=== PATIENT | female | born 1935 | race Caucasian/White ===

== ENCOUNTER → 2016-11-19 | Outpatient (CLI) | payer MEDICARE, OTHER ==
[~2016-11-19] MED LIST: LEVO50TA83 PO; LIOT5TAB3 PO
--- NOTE | 2016-11-19 20:10 | HKNOTE ---
DATE OF SERVICE: 11/19/2016 The patient had a left total hip replacement by the anterior route on 07/10/2016. She was very plea sed with the results of surgery. She states she cannot believe how little pain she had after surger y compared to when she had her right hip surgery. Note that she had revision surgery on her right h ip on 02/09/2014 for a failed ASR socket. At surgery, the femoral component was found to be loose. This was an unexpected finding, and the entire hip had to be revised. A ceramic on plastic hip was installed. Subsequently she noted that the right leg was shorter than the left leg, but she had ar thritis in the left hip and wasn't sure what was impacting her more. At her last visit, I measured her legs and found that the right leg was three-quarters of an inch sh orter than the left. I ordered a half-inch shoe lift, but the patient has not yet gotten the shoe l ift. She had pain at her last visit over the right greater trochanter, and I gave her a cortisone i njection into that area. She indicates that this did not help her at all. Note that she states that "my home health care after my hip replacement was wonderful." She still h as some pain over the right greater trochanter. She also gets pain in the right groin from time to time when she gets up from a sitting position. T he pain has a sudden onset. It can last anything from a few minutes to an hour. This only happens perhaps once a month or so. She had no numbness or tingling in her legs. Both of her legs feel "weak." She requests a prescrip tion for physical therapy to strengthen her legs. PHYSICAL EXAMINATION: VITAL SIGNS: Blood pressure 120/50, temperature 98.1. GAIT: She walks without a walking aid, but she clearly has a short-leg gait. RIGHT HIP: A full pain-free range of motion. Stable. Her x-rays were reviewed, and these show that the right leg clearly is shorter than the left (note t hat at the last left hip surgery, the leg was not lengthened at all, and the offset was lateralized by 2 mm). MANAGEMENT: The patient is advised that she has the shortest neck length on her right hip implant a nd that we could add neck length to about a half an inch, which would improve her situation to the p oint where she may not need a shoe lift at all. I suspect that the pain she is getting in her right hip when she gets up from sitting is somehow related to subluxation of the right hip. The patient is advised that lengthening the leg will have 2 benefits, one is improving her gait from more equal leg lengths, and two, might provide more stability through the hip so that she no longer gets these episodic pain spells. Also we discussed the possibility of including a socket liner wit h a lip if we can find a location where the hip might be subluxing. The patient was given another prescription for a shoe lift so that she can assess what benefit a ming f-inch shoe lift may be to her. She will think about the surgery and will call my nutrition services assistant, Brian cordon, if she wishes to proceed. Dictated By: MANNIE BLACKWOOD/AKUA Conf#: [id number] DID#: [id number]
== END | disposition home or self-care (01) ==
LOC: HKI 13:57
DX: Z47.1 Aftercare following joint replacement surgery (principal); Z96.642 Presence of left artificial hip joint
CPT/HCPCS: G0463

== ENCOUNTER → 2016-12-04 | Outpatient (CLI) | payer MEDICARE, OTHER ==
[~2016-12-04] MED LIST changes: +ASPI325T32 PO
--- NOTE | 2016-12-05 02:09 | HKNOTE ---
DATE OF SERVICE: 12/04/2016 Patient comes in for preoperative evaluation. She is scheduled for a head and liner exchange of her right total hip replacement. She comes in with her She has been cleared for surgery by Dr. Iain Chan. Numerous quest ions were asked and answered. She has not given any blood for autotransfusion. She understands the risks associated with using hospital blood. She is agreeable to using hospital blood if needed. T he patient understands that we will lengthen her leg only as far as would be safe to do so without i njuring her sciatica. Dictated By: MANNIE BLACKWOOD/NTS Conf#: [id number] DID#: [id number]
== END | disposition home or self-care (01) ==
LOC: HKI 14:33
DX: Z01.818 Encounter for other preprocedural examination (principal); Z96.641 Presence of right artificial hip joint
CPT/HCPCS: G0463

== ENCOUNTER 2016-12-05 05:44 | Inpatient (IN) | payer MEDICARE, OTHER ==
[2016-12-04 09:14] VITALS: BMI 18.8
[~2016-12-05] VITALS: Ht 165.1 cm; Wt 49.7 kg
[2016-12-05] VITALS (24 sets, daily range): BP systolic 84–112; BP diastolic 42–59; PULSE 74–89; RESP 13–31; Ht 165.1 cm; Wt 49.7 kg
[~2016-12-05 05:44] MED LIST changes: -ASPI325T32 PO
[2016-12-05] MEDS ORDERED: oxyCODONE (CR) 10 MG TAB [oxyCONTIN] PO ONE (06:00)
[2016-12-05] MEDS ORDERED: CELECOXIB 200 MG CAP PO ONE (06:00)
[2016-12-05] MEDS ORDERED: ONDANSETRON 4 MG INJ IV ONE (06:00)
[2016-12-05] MEDS ORDERED: VANCOMYCIN 1 GM (PMX) 250 ML IVPB ONE (06:00)
[2016-12-05] MEDS ORDERED: DEXAMETHASONE 4 MG/ML 1 ML INJ IV ONE (06:00)
[2016-12-05] MEDS ORDERED: ACETAMINOPHEN 1000MG/100ML IV 100 ML IVPB ONE (06:00)
[2016-12-05] MEDS ORDERED: LANSOPRAZOLE 30 MG CAP PO ONE (06:00)
[2016-12-05] MEDS ORDERED: TRANEXAMIC ACID 1,000 MG in SOD CHLORIDE 0.9% 100 ML IVPB ONE (06:00)
[2016-12-05] MEDS ORDERED: LACTATED RINGER'S 1,000 ML IV* SCH (06:00)
[2016-12-05] MEDS ORDERED: HIP PAIN COCKTAIL VANCO INJ SCH ×7 (06:00)
[2016-12-05] MEDS ORDERED: MIDAZOLAM 1 MG/ML 2 ML INJ ONE (07:05)
[2016-12-05] MEDS ORDERED: LIDOCAINE 2% (SDV) 5 ML INJ ONE (07:05)
[2016-12-05] MEDS ORDERED: ROCURONIUM 50 MG INJ ONE (07:05)
[2016-12-05] MEDS ORDERED: NEOSTIGMINE 3 MG/3 ML SYRINGE ONE (07:05)
[2016-12-05] MEDS ORDERED: GLYCOPYRROLATE 1 MG INJ ONE (07:05)
[2016-12-05] MEDS ORDERED: PROPOFOL 20 ML ONE (07:05)
[2016-12-05] MEDS ORDERED: FENTAnyl 50 MCG/ML VIAL ONE (07:05)
[2016-12-05] MEDS ORDERED: LIDOCAINE 2%/EPI 30 ML INJ ONE (07:07)
[2016-12-05] MEDS ORDERED: ONDANSETRON 4 MG INJ IV PRN (07:30)
[2016-12-05] MEDS ORDERED: OXYCODONE/ACETAMINOPHEN (5/325) TAB PO PRN ×2 (07:30)
[2016-12-05] MEDS ORDERED: hydrALAzine 20 MG INJ IV PRN (07:30)
[2016-12-05] MEDS ORDERED: DIPHENHYDRAMINE 50 MG INJ IV PRN (07:30)
[2016-12-05] MEDS ORDERED: MIDAZOLAM 1 MG/ML 2 ML INJ IV PRN (07:30)
[2016-12-05] MEDS ORDERED: ATROPINE 1 MG/10 ML SYRINGE IV PRN (07:30)
[2016-12-05] MEDS ORDERED: morphine (1 MG/ML) 10ML SYRINGE IV PRN ×3 (07:30)
[2016-12-05] MEDS ORDERED: LABETALOL HCL 20MG INJ IV PRN (07:30)
[2016-12-05] MEDS ORDERED: FENTAnyl 50 MCG/ML VIAL IV PRN ×2 (07:30)
[2016-12-05] MEDS ORDERED: HYDROmorphONE (0.2 MG/ML) 10ML SYG IV PRN ×3 (07:30)
[2016-12-05] MEDS ORDERED: EPHEDrine SULFATE 50 MG/5 ML SYG IV PRN (07:30)
[2016-12-05] MEDS ORDERED: MEPERIDINE 25 MG INJ IV PRN (07:30)
[2016-12-05] MEDS ORDERED: BACITRACIN 50000 UNITS INJ ONE (07:32)
[2016-12-05] MEDS ORDERED: VANCOMYCIN 1 GM INJ ONE ×2 (07:37→07:55)
[2016-12-05] MEDS ORDERED: HEPARIN 1000 UNITS/ML 10 ML INJ ONE (07:37)
[2016-12-05] MEDS ORDERED: POLYMYXIN B 500000 UNIT INJ ONE ×2 (07:37→07:55)
[2016-12-05] MEDS ORDERED: GELATIN SIZE 100 SPONGE ONE ×2 (07:37→07:54)
[2016-12-05] MEDS ORDERED: ROPIVACAINE 0.2% 0 ML ONE (07:37)
[2016-12-05] MEDS ORDERED: ROPIVACAINE 0.2% 100 ML ONE (07:54)
[2016-12-05] MEDS ORDERED: SOD CHLORIDE 0.9% 50 ML, TRANEXAMIC ACID 1,000 MG IRR SCH ×2 (08:00)
[2016-12-05] MEDS ORDERED: ONDANSETRON 4 MG INJ ONE (08:14)
[2016-12-05] MEDS ORDERED: DEXAMETHASONE 4 MG/ML 1 ML INJ ONE (08:14)
[2016-12-05] MEDS ORDERED: EPHEDrine SULFATE 50 MG/5 ML SYG ONE (08:29)
--- NOTE | 2016-12-05 08:39 | HPN ---
Date/Time of Note Date/Time of Note DATE: 12/05/16 TIME: 08:38 Interval H&P Admission Note Pt. seen H&P reviewed: No system changes PEACE CORNEJO PA-C Dec 05, 2016 08:39
[2016-12-05] MEDS ORDERED: LABETALOL HCL 20MG INJ ONE (08:43)
[2016-12-05] MEDS ORDERED: hydrALAzine 20 MG INJ ONE (08:43)
[2016-12-05] MEDS ORDERED: ROPIVACAINE 0.2% 100ML BAG INJ ONE (09:09)
[2016-12-05] MEDS ORDERED: FUROSEMIDE 20 MG INJ ONE (09:43)
[2016-12-05] MEDS ORDERED: MAGNESIUM HYDROXIDE 30ML CUP PO PRN (11:30)
[2016-12-05] MEDS ORDERED: NACL 0.9% 3 ML SYG IV SCH (11:30)
[2016-12-05] MEDS ORDERED: DIPHENHYDRAMINE 50 MG INJ IM PRN (11:30)
[2016-12-05] MEDS ORDERED: BETHANECHOL 25 MG TAB PO PRN (11:30)
[2016-12-05] MEDS ORDERED: ZOLPIDEM 5 MG TAB PO PRN (11:30)
[2016-12-05] MEDS ORDERED: SENNA/DOCUSATE NA (8.6MG/50MG) TAB PO PRN (11:30)
[2016-12-05] MEDS ORDERED: BISACODYL 10 MG SUPP PR PRN (11:30)
[2016-12-05] MEDS ORDERED: HYDROmorphONE 0.2 MG/ML PCA IV PRN (11:30)
[2016-12-05] MEDS ORDERED: NA PHOSPHATE/BIPHOS 133 ML ENEMA PR PRN (11:30)
[2016-12-05] MEDS ORDERED: DOCUSATE SODIUM 100 MG CAP PO ONE ×2 (11:30→11:39)
[2016-12-05] MEDS ORDERED: NALOXONE (0.4 MG/ML) INJ IV PRN (11:30)
[2016-12-05] MEDS ORDERED: MEPERIDINE 10 MG/ML 30 ML PCA IV PRN (11:30)
[2016-12-05] MEDS ORDERED: ASPIRIN (EC) 325 MG TAB PO ONE ×2 (11:30→11:39)
[2016-12-05] MEDS ORDERED: CEFAZOLIN 1 GM/50 ML (PMX) 50 ML IVPB ONE (11:38)
--- NOTE | 2016-12-05 11:40 | RADRPT ---
PROCEDURE: XR Right Hip. CLINICAL INDICATION: Right hip pain. Postop. TECHNIQUE: Single frontal view. COMPARISON: 02/14/2016. FINDINGS: There is a right hip total arthroplasty revision. This appears satisfactory with no fracture, dislo cation or loosening. There is no lytic lesion. Right lateral skin remedios and surgical drains are noted. There is gas in the soft tissues from the recent surgery. IMPRESSION: 1. Satisfactory postoperative appearance of the right hip. RPTAT: QQ .Dino Jean Baptiste MD, MD Date Time Electronically viewed and signed by .Dino Jean Baptiste MD, on 12/05/2016 11:39 .R/
[2016-12-05] MEDS: ACETAMINOPHEN 1000MG/100ML IV 100 ML IVPB SCH ×2 (11:53→20:21)
[2016-12-05] MEDS: ONDANSETRON 4 MG INJ IV SCH ×2 (11:54→17:41)
[2016-12-05] MEDS: CEFAZOLIN 1 GM/50 ML (PMX) 50 ML IVPB SCH ×2 (11:56→20:49)
--- NOTE | 2016-12-05 12:54 | OPR ---
DATE OF OPERATION: 12/05/2016 SURGEON: Wild Tanner MD MANAGER PLANNING: ANESTHESIA: Dr. 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 PROCEDURE: Lengthening of right leg by changing the femoral head and neck component. DISCUSSION: The patient had a right total hip replacement at least 10 years ago. She recently had a left total hip replacement by the anterior approach. The leg length on the left side was kept abs olutely where it was at the last surgery in order not to change this dynamics of the left hip. Once the patient recovered and had a full range of motion of the left hip, she is now aware of the fact that the right leg seemed to be too short. Measurements in the office indicated that approximately a 1/2 inch to 3/4 inch lift would equalize the leg lengths. The patient previously had a +1 mm femo ral neck on the femoral head component. Fortunately, that is the shortest one available, so we were able to select longer necks that would fit without causing undue traction on the sciatic nerve. Th e next neck length after 9 is 12, and that has a collar on the neck, so that would make it more pron e to dislocation. Patient also was complaining of subluxation of the right hip and lengthening the neck length would, therefore, solve both the length problem and the subluxation. FINDINGS AT SURGERY: There was absolutely no sign of infection. The acetabular component showed no wear. The femoral component was found to be well fixed to bone. DESCRIPTION OF PROCEDURE: Under general anesthetic, the patient was placed on a Van Tassell table. The [facility] leg, thigh, and lower abdomen were prepared and draped in the usual sterile fashion. An incisio n was made over the anterolateral aspect of the right thigh approximately 80 mm long. The incision was deepened through the deep fascia, and by blunt dissection the interval between the tensor fascia noam and the rectus muscle was identified. The capsule was now opened. There was no fluid in the hip, so we could not send any to the lab. By incising the capsule, we were able to dislocate the hi p. The femoral head was removed. The acetabular component was inspected. Acetabulum was found to be well attached to the bone. Acetabular plastic component appeared to be without wear. The wound was frequently irrigated throughout the procedure with normal saline-containing antibiotic s. A 9 mm trial femoral neck head component was now installed. The tension on the hip appeared to be a ppropriate. The Peggy test appeared to be appropriate. The hip was now put through an extremely ful l range of motion to the limits. The hip was completely stable. The hip was dislocated. The trunnion was cleaned. The permanent femoral head was now installed, an d the hip was reduced. Two deep drains were installed. The wound was now once again irrigated, and the wound was closed wi th interrupted Vicryl in the deep tissues and remedios on the skin. The usual sterile dressings were applied. The patient was taken off the [place] T[place] table and placed on a gurney with an abductor pillow between her legs. The patient returned to recovery room in stable condition. There were no problems or complications as far as is known. IMPLANT COMPONENT INFORMATION: Femoral head size: 32 mm. Femoral neck size: +9 mm. Femoral head: [employer] Delta ceramic. Implant ventilating engineer: [employer] [place], [place]. Dictated By: WILD BLACKWOOD/AKUA Conf#: [id number] DID#: [id number]
[2016-12-05] MEDS: DEXTROSE 5%-LR 1,000 ML IV SCH (13:47)
--- NOTE | 2016-12-05 16:22 | PN ---
Date/Time of Note Date/Time of Note DATE: 12/05/16 TIME: 16:20 Assessment/Plan VTE Prophylaxis VTE Prophylaxis Intervention: SCD's Lines/Catheters IV Catheter Type (from Nrsg): Peripheral IV Urinary Cath still in place: Yes Subjective 24 Hr Interval Summary Free Text/Dictation post rt hip surgery today, has been up once and did well alert talkative, no pain complaints lungs clear, hrt rate is ok, extremities, no edema vs ok, bop sl low, output is good Exam/Review of Systems Vital Signs Vitals Vital Signs Date Time Temp Pulse Resp B/P Pulse Ox O2 Delivery O2 Flow Rate FiO2 12/05/16 14:15 76 16 94/50 98 Room Air 12/05/16 13:25 97.4 Medications Medications Current Medications Dextrose/Lactated Ringer's (D5-Lr) 1,000 ml @ 80 mls/hr [id number] IV Last administered on 12/05/16 13:47; Admin Dose 80 MLS/HR; Start 12/05/16 at 11:30 Hydromorphone HCl (Dilaudid TOP SPOTTER) Q4PCA PRN IV SEVERE PAIN 8-10; Start at 11:30; Stop 12/06/16 at 09:00 Meperidine HCl (Demerol TOP SPOTTER) Q4PCA PRN IV SEVERE PAIN 8-10; Start 12/05/16 at 11:30; Stop 12/06/16 at 09:00 Oxycodone HCl (Roxicodone) 20 mg Q3H PRN PO PAIN LEVEL 8-10; Start 12/06/16 at 09:00 Oxycodone HCl 10 mg 10 mg Q3H PRN PO PAIN LEVEL 4-7; Start 12/06/16 at 09:00 Acetaminophen (Ofirmev 1000mg/ 100ml Iv) 100 ml @ 400 mls/hr Q8H IVPB Last administered on 12/05/16 11:53; Admin Dose 400 MLS/HR; Start 12/05/16 at 12:00 ; Stop 12/07/16 at 04:14 Zolpidem Tartrate (Ambien) 5 mg HS PRN PO INSOMNIA; Start 12/05/16 at 11:30 Ondansetron HCl 4 mg 4 mg Q6H IV Last administered on 12/05/16 11:54; Admin Dose 4 MG; Start 12/05/16 at 12:00; Stop 12/06/16 at 06:01 Cefazolin Sodium (Ancef 1 Gm/50 ml (Pmx)) 50 ml @ 100 mls/hr Q8H IVPB Last administered on 12/05/16t 11:56; Admin Dose 100 MLS/HR; Start 12/05/16 at 12:00 ; Stop 12/06/16 at 04:29 Aspirin (Ecotrin) 325 mg BID PO ; Start 12/06/16 at 09:00 Celecoxib (Celebrex) 200 mg BID PO ; Start 12/06/16 at 09:00 Dexamethasone (Decadron) 4 mg DAILY@07 IV ; Start 12/06/16 at 07:00; Stop at 06:59 Pantoprazole (Protonix Tab) 40 mg DAILY@06 PO ; Start 12/06/16 at 06:00 Docusate Sodium/ Ferrous Fumarate (Viv-Sequels) 1 tab BID PO ; Start 12/06/16 at 09:00 Docusate Sodium (Colace) 200 mg BID PO ; Start 12/06/16 at 09:00; Stop 12/08/16 at 21:01 Simethicone (Mylicon) 80 mg TID PRN PO DISTENSION/GAS/BLOATING; Start 12/05/16 at 11:30 Senna/Docusate Sodium (Senokot-S) 2 tab BID PRN PO CONSTIPATION; Start at 11:30 Magnesium Hydroxide (Milk Of Mag) 30 ml HS PRN PO CONSTIPATION; Start 12/05/16 at 11:30 Bisacodyl (Dulcolax Supp) [address] CONSTIPATION; Start 12/05/16 at 11 :30 Sodium Biphosphate/ Sodium Phosphate (Fleet Enema) [address] CONSTIPATION; Start 12/05/16 at 11:30 Diphenhydramine HCl (Benadryl) 25 mg Q4H PRN IM ITCHING OR RASH; Start at 11:30 Ketorolac Tromethamine (Toradol) 30 mg DAILY@06 PRN INJ ADMINSTER BY SURGEON ONLY; Start 12/06/16 at 06:00; Stop 12/08/16 at 23:59 Bupivacaine HCl/ Epinephrine Bitart (Marcaine 0.25%/ Epi (Sdv) 30 ml) 20 ml DAILY@06 PRN INJ ADMINSTER BY SURGEON ONLY; Start 12/06/16 at 06:00; Stop 12/08 at 23:59 Naloxone HCl (Narcan) 0.2 mg Q2M PRN IV DECREASED REPIRATORY RATE; Start at 11:30 DELFINO RUVALCABA MD Dec 05, 2016 16:22
[2016-12-06] VITALS: BP 90/52; PULSE 77; RESP 18
[2016-12-06] MEDS: ONDANSETRON 4 MG INJ IV SCH ×2 (00:34→06:18)
[2016-12-06] MEDS: ACETAMINOPHEN 1000MG/100ML IV 100 ML IVPB SCH ×4 (04:04→20:35)
[2016-12-06] MEDS: CEFAZOLIN 1 GM/50 ML (PMX) 50 ML IVPB SCH (04:36)
[2016-12-06 04:37] VITALS: BP 98/48; PULSE 77; RESP 18
[2016-12-06] MEDS ORDERED: KETOROLAC 30 MG INJ INJ PRN (06:00)
[2016-12-06] MEDS ORDERED: BUPIVACAINE 0.25%/EPI (SDV) 30 ML INJ INJ PRN (06:00)
[2016-12-06] MEDS: DEXAMETHASONE 4 MG/ML 1 ML INJ IV SCH (06:17)
[2016-12-06] MEDS: DEXTROSE 5%-LR 1,000 ML IV SCH ×2 (06:17)
[2016-12-06] MEDS: PANTOPRAZOLE (EC) 40 MG TAB PO SCH (06:18)
--- NOTE | 2016-12-06 06:57 | PN ---
Date/Time of Note Date/Time of Note DATE: 12/06/16 TIME: 06:53 Assessment/Plan VTE Prophylaxis VTE Prophylaxis Intervention: ambulation, SCD's, other (ASA 325mg) Lines/Catheters IV Catheter Type (from Nrsg): Peripheral IV Miranda in Place (from Nrsg): Yes Assessment/Plan Assessment/Plan Pain cocktail given today Hemovac removed Dressing change performed today Continue DVT prophylaxis with SCDs and ASA Continue inpatient physical therapy. Pain medications as needed Patient continues to do well, likely able to discharge tomorrow should there be no complications or problems Patient plans to be discharged home with home health. Will work with case management. Subjective 24 Hr Interval Summary 81-year-old female postop day 1 right total hip revision with replacement of femoral head and neck component via anterior route. Patient denies any pain since yesterday. Patient is doing well. Patient was up and out of bed independently and walking with assistance with a walker yesterday. Denies any shortness of breath, difficulty breathing, or calf pain. Patient has no complaints today and is very pleased status post surgery. Constitutional: no complaints Pain Control: well controlled Exam/Review of Systems Vital Signs Vitals Vital Signs Date Time Temp Pulse Resp B/P Pulse Ox O2 Delivery O2 Flow Rate FiO2 12/06/16 04:37 97.6 77 18 98/48 98 Room Air Intake and Output 12/05/16 12/05/16 12/06/16 15:00 23:00 07:00 Intake Total 2800 ml 570 ml 1190 ml Output Total 320 ml 1800 ml 810 ml Balance 2480 ml -1230 ml 380 ml Exam Free Text/Dictation Drains intact. Wound site is clean dry and intact. Patient is able to flex up to 45 today. No calf pain/negative Homans sign. Normal sensory examination to light touch. No tenderness to palpation. 2+ pedal pulses to the dorsalis pedis and posterior tibialis. Toes freely movable. PEACE CORNEJO PA-C Dec 06, 2016 06:57
[2016-12-06 07:00] VITALS: BP 96/54; RESP 20
[2016-12-06] MEDS: CELECOXIB 200 MG CAP PO SCH ×2 (08:24→20:35)
[2016-12-06] MEDS: ASPIRIN (EC) 325 MG TAB PO SCH ×2 (08:24→20:35)
[2016-12-06] MEDS: DOCUSATE SODIUM 100 MG CAP PO SCH ×2 (08:25→20:35)
[2016-12-06] MEDS: FERROUS FUMARATE (SR) TAB PO SCH ×2 (08:25→20:35)
[2016-12-06 09:00] LABS: BASOPHILS % 0.1 % (0.0-2.0); HEMATOCRIT 30.7 % (37.0-47.0); HEMOGLOBIN 10.6 g/dl (12.0-16.0); LYMPHOCYTES # 0.6 10^3/ul (0.8-2.9); LYMPHOCYTES % 6.8 % (15.0-51.0); MEAN CORPUSCULAR HEMOGLOBIN 28.8 pg (29.0-33.0); MEAN CORPUSCULAR HGB CONC 34.6 g/dl (32.0-37.0); MEAN CORPUSCULAR VOLUME 83.2 fl (82.0-101.0); MEAN PLATELET VOLUME 8.5 fl (7.4-10.4); MONOCYTE # 0.5 10^3/ul (0.3-0.9); MONOCYTES % 5.8 % (0.0-11.0); NEUTROPHILS % 87.3 % (39.0-77.0); PLATELET COUNT 143 10^3/UL (140-440); RED BLOOD COUNT 3.69 10^6/ul (4.20-5.40); RED CELL DISTRIBUTION WIDTH 15.7 % (11.5-14.5); UNCORRECTED WBC 9.2 10^3/ul (4.8-10.8); WHITE BLOOD COUNT 9.2 10^3/ul (4.8-10.8)
[2016-12-06] MEDS ORDERED: oxyCODONE 5 MG TAB PO PRN ×2 (09:00)
[2016-12-06 09:20] LABS: CONDITION 1; LH ANALYZER COMMENTS 1
--- NOTE | 2016-12-06 12:35 | PN ---
Date/Time of Note Date/Time of Note DATE: 12/06/16 TIME: 12:32 Assessment/Plan VTE Prophylaxis VTE Prophylaxis Intervention: contraindicated, other (ASA) VTE Contraindication Reason: sx procedure on lower extremity Lines/Catheters IV Catheter Type (from Nrsg): Peripheral IV Urinary Cath still in place: Yes Reason Cath still needed: skin wounds contaminated by urine Assessment/Plan Problems: (1) Other specified hypothyroidism Status: Chronic Comment: On LT4 (2) Aftercare following right hip joint replacement surgery Status: Acute Comment: Doing well POD# 1. Likely to be d/c'ed tomorrow. Agree pt. ready for d/c from med standpoint. Subjective 24 Hr Interval Summary Constitutional: improved, no complaints Respiratory: no complaints Cardiovascular: no complaints Gastrointestinal: no complaints, No passing stool Genitourinary: no complaints Musculoskeletal: no complaints, No bone/joint pain Neurologic: no complaints Exam/Review of Systems Vital Signs Vitals VS - Last 72 Hours, by Label Date Time Temp Pulse Resp B/P Pulse Ox O2 Delivery O2 Flow Rate FiO2 12/06/16 07:00 97.7 75 20 96/54 98 12/06/16 04:37 97.6 77 18 98/48 98 Room Air 12/06/16 00:00 97.7 77 18 90/52 98 Room Air 12/05/16 20:02 98.0 73 20 90/59 98 12/05/16 14:15 76 16 94/50 98 Room Air 12/05/16 14:00 74 18 93/50 98 Room Air 12/05/16 13:40 76 18 98/50 98 Room Air 12/05/16 13:25 97.4 77 19 97/50 98 Room Air 12/05/16 12:13 74 16 100/46 96 Room Air 12/05/16 12:07 74 16 90/44 95 Room Air 12/05/16 12:04 80 30 95/43 96 Room Air 12/05/16 12:02 74 19 86/52 96 Room Air 12/05/16 11:57 76 16 94/47 96 Room Air 12/05/16 11:52 82 26 93/46 96 Room Air 12/05/16 11:36 76 19 99/50 96 Room Air 12/05/16 11:32 74 15 84/43 95 Room Air 12/05/16 11:27 76 13 93/42 96 Room Air 12/05/16 11:22 78 19 87/43 96 Room Air 12/05/16 11:17 80 17 88/47 95 Room Air 12/05/16 11:12 80 16 90/44 95 Room Air 12/05/16 11:07 80 31 92/48 96 Room Air 12/05/16 11:02 80 15 97/48 94 Room Air 12/05/16 10:57 82 16 100/49 95 Room Air 12/05/16 10:52 84 14 106/55 94 Room Air 12/05/16 10:48 98.1 12/05/16 10:47 86 24 112/57 95 Room Air 12/05/16 10:44 98.1 89 18 106/46 99 Room Air 12/05/16 06:54 97.1 78 18 96/45 100 Room Air Vital Signs Date Time Temp Pulse Resp B/P Pulse Ox O2 Delivery O2 Flow Rate FiO2 12/06/16 07:00 97.7 75 20 96/54 98 12/06/16 04:37 Room Air Intake and Output 12/05/16 12/05/16 12/06/16 14:59 22:59 06:59 Intake Total 2800 ml 570 ml 1190 ml Output Total 320 ml 1800 ml 810 ml Balance 2480 ml -1230 ml 380 ml Exam Constitutional: alert, oriented, well developed Psych: nl mood/affect, no complaints Respiratory: clear to auscultation, normal air movement Cardiovascular: nl pulses, regular rate and rhythm, No edema, No murmurs/extra sounds, No rub Gastrointestinal: bowel sounds, nl liver, spleen, non-tender, soft, No mass, No rebound or guarding Musculoskeletal: nl extremities to inspection, nl gait and stance Extremities: normal pulses, No clubbing, No cyanosis, No edema Neurological: ELEVATOR REPAIR MECHANIC II-XII intact, nl mental status, nl speech, nl strength Results Result Diagram: 12/06/16 0822 Results 24 hrs Laboratory Tests Test 12/06/16 08:22 Basophils # 0.0 Basophils % 0.1 Blood Morphology Comment Eosinophils # 0.0 Eosinophils % 0.0 Hematocrit 30.7 L Hemoglobin 10.6 L Lymphocytes # 0.6 L Lymphocytes % 6.8 L Mean Corpuscular Hemoglobin 28.8 L Mean Corpuscular Hemoglobin Concent 34.6 Mean Corpuscular Volume 83.2 Mean Platelet Volume 8.5 Monocytes # 0.5 Monocytes % 5.8 Neutrophils # 8.0 H Neutrophils % 87.3 H Nucleated Red Blood Cells # 0.0 Nucleated Red Blood Cells % 0.0 Platelet Count 143 # Red Blood Count 3.69 #L Red Cell Distribution Width 15.7 H White Blood Count 9.2 # Medications Medications Current Medications Dextrose/Lactated Ringer's (D5-Lr) 1,000 ml @ 80 mls/hr [id number] IV Last administered on 12/06/16 06:17; Admin Dose 80 MLS/HR; Start 12/05/16 at 11:30 Oxycodone HCl (Roxicodone) 20 mg Q3H PRN PO PAIN LEVEL 8-10; Start 12/06/16 at 09:00 Oxycodone HCl 10 mg 10 mg Q3H PRN PO PAIN LEVEL 4-7; Start 12/06/16 at 09:00 Acetaminophen (Ofirmev 1000mg/ 100ml Iv) 100 ml @ 400 mls/hr Q8H IVPB Last administered on 12/06/16 11:52; Admin Dose 400 MLS/HR; Start 12/05/16 at 12:00 ; Stop 12/07/16 at 04:14 Zolpidem Tartrate (Ambien) 5 mg HS PRN PO INSOMNIA; Start 12/05/16 at 11:30 Aspirin (Ecotrin) 325 mg BID PO Last administered on 12/06/16 08:24; Admin Dose 325 MG; Start 12/06/16 at 09:00 Celecoxib (Celebrex) 200 mg BID PO Last administered on 12/06/16 08:24; Admin Dose 200 MG; Start 12/06/16 at 09:00 Dexamethasone (Decadron) 4 mg DAILY@07 IV Last administered on 12/06/16 06:17 ; Admin Dose 4 MG; Start 12/06/16 at 07:00; Stop 12/09/16 at 06:59 Pantoprazole (Protonix Tab) 40 mg DAILY@06 PO Last administered on 12/06/16 06 :18; Admin Dose 40 MG; Start 12/06/16 at 06:00 Docusate Sodium/ Ferrous Fumarate (Viv-Sequels) 1 tab BID PO Last administered on 12/06/16 08:25; Admin Dose 1 TAB; Start 12/06/16 at 09:00 Docusate Sodium (Colace) 200 mg BID PO Last administered on 12/06/16t 08:25; Admin Dose 200 MG; Start 12/06/16 at 09:00; Stop 12/08/16 at 21:01 Simethicone (Mylicon) 80 mg TID PRN PO DISTENSION/GAS/BLOATING; Start 12/05/16 at 11:30 Senna/Docusate Sodium (Senokot-S) 2 tab BID PRN PO CONSTIPATION; Start at 11:30 Magnesium Hydroxide (Milk Of Mag) 30 ml HS PRN PO CONSTIPATION; Start 12/05/16 at 11:30 Bisacodyl (Dulcolax Supp) 10 mg DAILY PRN [place] CONSTIPATION; Start 12/05/16 at 11 :30 Sodium Biphosphate/ Sodium Phosphate (Fleet Enema) 133 ml DAILY PRN [place] CONSTIPATION; Start 12/05/16 at 11:30 Diphenhydramine HCl (Benadryl) 25 mg Q4H PRN IM ITCHING OR RASH; Start at 11:30 Ketorolac Tromethamine (Toradol) 30 mg DAILY@06 PRN INJ ADMINSTER BY SURGEON ONLY; Start 12/06/16 at 06:00; Stop 12/08/16 at 23:59 Bupivacaine HCl/ Epinephrine Bitart (Marcaine 0.25%/ Epi (Sdv) 30 ml) 20 ml DAILY@06 PRN INJ ADMINSTER BY SURGEON ONLY; Start 12/06/16 at 06:00; Stop 12/08 at 23:59 Naloxone HCl (Narcan) 0.2 mg Q2M PRN IV DECREASED REPIRATORY RATE; Start at 11:30 MICKIE WEST MD Dec 06, 2016 12:35
[2016-12-06 19:21] VITALS: BP 104/55; RESP 18
[2016-12-07] MEDS: DEXTROSE 5%-LR 1,000 ML IV SCH (01:00)
[2016-12-07] MEDS: ACETAMINOPHEN 1000MG/100ML IV 100 ML IVPB SCH (04:00)
[2016-12-07] MEDS: PANTOPRAZOLE (EC) 40 MG TAB PO SCH (05:46)
[2016-12-07] MEDS: DEXAMETHASONE 4 MG/ML 1 ML INJ IV SCH (06:47)
--- NOTE | 2016-12-07 07:32 | PN ---
Date/Time of Note Date/Time of Note DATE: 12/07/16 TIME: 07:28 Assessment/Plan VTE Prophylaxis VTE Prophylaxis Intervention: ambulation, SCD's, other (ASA 325mg) Lines/Catheters IV Catheter Type (from Nrsg): Peripheral IV Miranda in Place (from Nrsg): Yes Assessment/Plan Assessment/Plan Pain cocktail given today. Pain cocktail drain removed after cocktail was given. Dress change performed today Patient given Tegaderm with instructions on how to use at home to prevent any water being introduced to surgical wound. Continue DVT prophylaxis with aspirin 325 mg at home Pain medication as needed. Patient will be discharged home with home health aide who will monitor and remove remedios after 10 days. Patient will follow-up in outpatient clinic in 3 weeks. Patient also made aware that should she express any complications, she may return sooner for repeat evaluation. Discharge planning will be taken care of today. She is currently working with case management for home health aide in [place] Subjective 24 Hr Interval Summary 81-year-old female postop day 2 right total hip revision with replacement of femoral head and neck component via anterior route. Continues with no pain complaints of the right hip. Patient is up and walking independently with assistance using a front wheeled walker throughout the hallways without any difficulty. Denies any calf pain. No drainage or discharge from wound site. Patient is very pleased and ready to go home. Pain Control: well controlled Exam/Review of Systems Vital Signs Vitals Vital Signs Date Time Temp Pulse Resp B/P Pulse Ox O2 Delivery O2 Flow Rate FiO2 12/06/16 19:21 98.0 78 18 104/55 97 12/06/16 04:37 Room Air Intake and Output 12/06/16 12/06/16 12/07/16 15:00 23:00 07:00 Intake Total 860 ml 700 ml Balance 860 ml 700 ml Exam Free Text/Dictation Wound site is clean dry and intact. [place] clean dry and intact. Patient is able to flex the hip in between 80 and 90 on exam today. Mild discomfort when she reaches close to 90. No tenderness to palpation on exam today. 2+ dorsalis pedis and posterior tibialis pulses. Toes freely movable. Results Result Diagram: 12/06/16 0822 PEACE CORNEJO PA-C Dec 07, 2016 07:32
--- NOTE | 2016-12-07 07:35 | PDOCDIS ---
Discharge Instructions CONDITION Patient Condition: Stable HOME CARE INSTRUCTIONS: Diet Instructions: RegularSpecial Diet: REGULAR ACTIVITY: Activity Restrictions: Rest between Activity Avoid heavy lifting No Sexual Activity Do not Drive Do not operate Machinery Do not operate Power Tool Avoid Heavy Housework Keep Limb Elevated Weight Bearing (weight bear as tolerated with use of walker if needed.) Bathing Restrictions: Shower (with tegaderm given until remedios have been removed in 10 days.) FOLLOW UP/APPOINTMENTS Appointments In [address] Tanner/JUVENTINO Norton KERBY PA-C Dec 07, 2016 07:35
[2016-12-07] MEDS ORDERED: ASPI325T32 PO (07:37)
[2016-12-07 07:53] VITALS: BP 104/48; RESP 19
[2016-12-07] MEDS: DOCUSATE SODIUM 100 MG CAP PO SCH (08:54)
[2016-12-07] MEDS: ASPIRIN (EC) 325 MG TAB PO SCH (08:54)
[2016-12-07] MEDS: CELECOXIB 200 MG CAP PO SCH (08:54)
[2016-12-07] MEDS: FERROUS FUMARATE (SR) TAB PO SCH (08:54)
[2016-12-07 10:26] LABS: BASOPHILS % 0.1 % (0.0-2.0); HEMATOCRIT 31.4 % (37.0-47.0); HEMOGLOBIN 10.7 g/dl (12.0-16.0); LYMPHOCYTES # 1.2 10^3/ul (0.8-2.9); MEAN CORPUSCULAR HEMOGLOBIN 28.5 pg (29.0-33.0); MEAN CORPUSCULAR HGB CONC 34.1 g/dl (32.0-37.0); MEAN CORPUSCULAR VOLUME 83.6 fl (82.0-101.0); MEAN PLATELET VOLUME 8.5 fl (7.4-10.4); MONOCYTE # 0.5 10^3/ul (0.3-0.9); MONOCYTES % 5.9 % (0.0-11.0); PLATELET COUNT 157 10^3/UL (140-440); RED BLOOD COUNT 3.76 10^6/ul (4.20-5.40); RED CELL DISTRIBUTION WIDTH 16.2 % (11.5-14.5); UNCORRECTED WBC 7.7 10^3/ul (4.8-10.8); WHITE BLOOD COUNT 7.7 10^3/ul (4.8-10.8)
[2016-12-07 10:36] LABS: CONDITION 1; LH ANALYZER COMMENTS 1
--- NOTE | 2016-12-07 10:52 | PN ---
Date/Time of Note Date/Time of Note DATE: 12/07/16 TIME: 10:50 Assessment/Plan VTE Prophylaxis VTE Prophylaxis Intervention: ambulation, other (ASA) Lines/Catheters IV Catheter Type (from Nrs): Peripheral IV Urinary Cath still in place: No Assessment/Plan Problems: (1) Other specified hypothyroidism Status: Chronic Comment: Cont. LT4 daily and after d/c (2) Aftercare following right hip joint replacement surgery Status: Acute Comment: Doing excellent POD#2. Well for d/c home which has already been ordered by primary team. Med consult concurs. Subjective 24 Hr Interval Summary Constitutional: improved, no complaints Respiratory: no complaints Cardiovascular: no complaints Gastrointestinal: no complaints, No passing stool Genitourinary: no complaints Musculoskeletal: no complaints Neurologic: no complaints Exam/Review of Systems Vital Signs Vitals VS - Last 72 Hours, by Label Date Time Temp Pulse Resp B/P Pulse Ox O2 Delivery O2 Flow Rate FiO2 12/07/16 07:53 98.2 80 19 104/48 97 12/06/16 19:21 98.0 78 18 104/55 97 12/06/16 07:00 97.7 75 20 96/54 98 12/06/16 04:37 97.6 77 18 98/48 98 Room Air 12/06/16 00:00 97.7 77 18 90/52 98 Room Air 12/05/16 20:02 98.0 73 20 90/59 98 12/05/16 14:15 76 16 94/50 98 Room Air 12/05/16 14:00 74 18 93/50 98 Room Air 12/05/16 13:40 76 18 98/50 98 Room Air 12/05/16 13:25 97.4 77 19 97/50 98 Room Air 12/05/16 12:13 74 16 100/46 96 Room Air 12/05/16 12:07 74 16 90/44 95 Room Air 12/05/16 12:04 80 30 95/43 96 Room Air 12/05/16 12:02 74 19 86/52 96 Room Air 12/05/16 11:57 76 16 94/47 96 Room Air 12/05/16 11:52 82 26 93/46 96 Room Air 12/05/16 11:36 76 19 99/50 96 Room Air 12/05/16 11:32 74 15 84/43 95 Room Air 12/05/16 11:27 76 13 93/42 96 Room Air 12/05/16 11:22 78 19 87/43 96 Room Air 12/05/16 11:17 80 17 88/47 95 Room Air 12/05/16 11:12 80 16 90/44 95 Room Air 12/05/16 11:07 80 31 92/48 96 Room Air 12/05/16 11:02 80 15 97/48 94 Room Air 12/05/16 10:57 82 16 100/49 95 Room Air 12/05/16 10:52 84 14 106/55 94 Room Air 12/05/16 10:48 98.1 12/05/16 10:47 86 24 112/57 95 Room Air 12/05/16 10:44 98.1 89 18 106/46 99 Room Air 12/05/16 06:54 97.1 78 18 96/45 100 Room Air Vital Signs Date Time Temp Pulse Resp B/P Pulse Ox O2 Delivery O2 Flow Rate FiO2 12/07/16 07:53 98.2 80 19 104/48 97 12/06/16 04:37 Room Air Intake and Output 12/06/16 12/06/16 12/07/16 15:00 23:00 07:00 Intake Total 860 ml 700 ml Balance 860 ml 700 ml Exam Constitutional: alert, oriented, well developed Psych: nl mood/affect, no complaints Respiratory: clear to auscultation, normal air movement Cardiovascular: nl pulses, regular rate and rhythm, No edema, No murmurs/extra sounds, No rub Gastrointestinal: bowel sounds, nl liver, spleen, non-tender, soft, No mass, No rebound or guarding Musculoskeletal: nl extremities to inspection Extremities: normal pulses, No clubbing, No cyanosis, No edema 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, nl mental status, nl speech, nl strength Results Result Diagram: 12/07/16 1001 Results 24 hrs Laboratory Tests Test 12/07/16 10:01 Basophils # 0.0 Basophils % 0.1 Blood Morphology Comment Eosinophils # 0.0 Eosinophils % 0.0 Hematocrit 31.4 L Hemoglobin 10.7 L Lymphocytes # 1.2 Lymphocytes % 16.0 Mean Corpuscular Hemoglobin 28.5 L Mean Corpuscular Hemoglobin Concent 34.1 Mean Corpuscular Volume 83.6 Mean Platelet Volume 8.5 Monocytes # 0.5 Monocytes % 5.9 Neutrophils # 6.0 Neutrophils % 78.0 H Nucleated Red Blood Cells # 0.0 Nucleated Red Blood Cells % 0.0 Platelet Count 157 Red Blood Count 3.76 L Red Cell Distribution Width 16.2 H White Blood Count 7.7 Medications Medications Current Medications Dextrose/Lactated Ringer's (D5-Lr) 1,000 ml @ 80 mls/hr [id number] IV Last administered on 12/06/16 06:17; Admin Dose 80 MLS/HR; Start 12/05/16 at 11:30 Oxycodone HCl (Roxicodone) 20 mg Q3H PRN PO PAIN LEVEL 8-10; Start 12/06/16 at 09:00 Oxycodone HCl (Roxicodone) 10 mg Q3H PRN PO PAIN LEVEL 4-7; Start 12/06/16 at 09:00 Zolpidem Tartrate (Ambien) 5 mg HS PRN PO INSOMNIA; Start 12/05/16 at 11:30 Aspirin (Ecotrin) 325 mg BID PO Last administered on 12/07/16 08:54; Admin Dose 325 MG; Start 12/06/16 at 09:00 Celecoxib (Celebrex) 200 mg BID PO Last administered on 12/07/16 08:54; Admin Dose 200 MG; Start 12/06/16 at 09:00 Dexamethasone (Decadron) 4 mg DAILY@07 IV Last administered on 12/06/16 06:17 ; Admin Dose 4 MG; Start 12/06/16 at 07:00; Stop 12/09/16 at 06:59 Pantoprazole (Protonix Tab) 40 mg DAILY@06 PO Last administered on 12/07/16 05 :46; Admin Dose 40 MG; Start 12/06/16 at 06:00 Docusate Sodium/ Ferrous Fumarate (Viv-Sequels) 1 tab BID PO Last administered on 12/07/16 08:54; Admin Dose 1 TAB; Start 12/06/16 at 09:00 Docusate Sodium (Colace) 200 mg BID PO Last administered on 12/07/16 08:54; Admin Dose 200 MG; Start 12/06/16 at 09:00; Stop 12/08/16 at 21:01 Simethicone (Mylicon) 80 mg TID PRN PO DISTENSION/GAS/BLOATING; Start 12/05/16 at 11:30 Senna/Docusate Sodium (Senokot-S) 2 tab BID PRN PO CONSTIPATION; Start at 11:30 Magnesium Hydroxide (Milk Of Mag) 30 ml HS PRN PO CONSTIPATION; Start 12/05/16 at 11:30 Bisacodyl (Dulcolax Supp) 10 mg DAILY PRN AR CONSTIPATION; Start 12/05/16 at 11 :30 Sodium Biphosphate/ Sodium Phosphate (Fleet Enema) 133 ml DAILY PRN AR CONSTIPATION; Start 12/05/16 at 11:30 Diphenhydramine HCl (Benadryl) 25 mg Q4H PRN IM ITCHING OR RASH; Start at 11:30 Ketorolac Tromethamine (Toradol) 30 mg DAILY@06 PRN INJ ADMINSTER BY SURGEON ONLY; Start 12/06/16 at 06:00; Stop 12/08/16 at 23:59 Bupivacaine HCl/ Epinephrine Bitart (Marcaine 0.25%/ Epi (Sdv) 30 ml) 20 ml DAILY@06 PRN INJ ADMINSTER BY SURGEON ONLY; Start 12/06/16 at 06:00; Stop 12/08 at 23:59 Naloxone HCl (Narcan) 0.2 mg Q2M PRN IV DECREASED REPIRATORY RATE; Start at 11:30 MICKIE WEST MD Dec 07, 2016 10:52
--- NOTE | 2016-12-07 20:39 | DS ---
DATE OF ADMISSION: 12/05/2016 DATE OF DISCHARGE: 12/07/2016 MAIN COMPLAINT: Instability to the right hip. PREOPERATIVE DIAGNOSIS: Instability to the right hip, status post total hip replacement. POSTOPERATIVE DIAGNOSIS: Right total hip revision with replacement of femoral head via anterior route. DISCHARGE DIAGNOSIS: Status post right total hip revision with replacement of femoral head via anterior route. HOSPITAL COURSE: On day of admission, patient underwent right total hip revision via anterior route with replacement head. INTRAOPERATIVE COMPLICATIONS: None. POSTOPERATIVE COMPLICATIONS: None. Patient was given prophylactic antibiotics and anticoagulants. Patient began gait training status post surgery and was taught the usual restrictions regarding hip replacement. No pain complaints on the day of surgery. On the second postoperative day, the patient was up and ambulating. Suction drain was removed postop day 1. The wound continued to be clean, dry and intact throughout hospital course. No signs of infection. The patient's pain was well controlled with pain cocktail, as well as as-needed pain medications. On day of discharge, wound continues to do well. No signs of infection. Dressings were changed. Temperature on 12/07/2016 was 98.2 degrees. Hemoglobin on 12/07/2016 was 10.7. White blood cell count on 12/07/2016 was 7.7. The patient was discharged home with arrangements being made by case management for home health and visiting nurses, as well as at home physical therapy. The patient will be seen in office in 3 weeks for repeat evaluation. Patient is aware that should she experience any complications or problems that she may follow up at an earlier date. Penrose will be removed by home health after 10 days. Tegaderm was provided for patient on discharge with instructions on how to keep wound dry while showering with Tegaderm. The patient is aware that she may only shower with Tegaderm to the wound until remedios have been removed to avoid complications such as infections. DISCHARGE MEDICATIONS: As per medication reconciliation form. All postoperative pain medications have been provided on preop visit and patient is in possession. Continue aspirin for DVT prophylaxis 325 mg twice a day expected for 6 weeks. Patient is aware of hip precautions expected for 6 weeks. DIET: Same as preadmission diet. Dictated By: PEACE ARMSTRONG for MANNIE LAMBERT MD, KP/AKUA Conf#: [id number] DID#: [id number] MTDD
== END 2016-12-07 13:15 | disposition home health service (06) | DRG 468 ==
LOC: REC 05:44 → MS1 13:25
PROC: 0SPR0JZ Removal of Synthetic Substitute from Right Hip Joint, Femoral Surface, Open Approach (ICD-10-PCS; 2016-12-05)
PROC: 0SRR03A Replacement of Right Hip Joint, Femoral Surface with Ceramic Synthetic Substitute, Uncemented, Open Approach (ICD-10-PCS; principal; 2016-12-05 08:00)
DX: T84.89XA Other specified complication of internal orthopedic prosthetic devices, implants and grafts, initial encounter (principal); Z96.641 Presence of right artificial hip joint; E03.9 Hypothyroidism, unspecified; Z79.82 Long term (current) use of aspirin; Y65.8 Other specified misadventures during surgical and medical care; Y92.234 Operating room of hospital as the place of occurrence of the external cause
CPT/HCPCS: 73500; 85025; 86850; 86900; 86901; 86920; 87086; 88300; 97116; 97162; 97530; J1940; J0131; J0171; J0360; J0690; J0735; J1100; J1644; J1885; J2250; J2274; J2405; J2710; J2795; J3010; J3370; J7121

== ENCOUNTER → 2016-12-30 | Outpatient (CLI) | payer MEDICARE, OTHER ==
[~2016-12-30] MED LIST changes: +ASPI325T32 PO
--- NOTE | 2016-12-30 18:49 | HKNOTE ---
DATE OF SERVICE: 12/30/2016 SUBJECTIVE: An 81-year-old female who presents today for a 3 week postop visit status post right total hip replacement revision surgery with replacement of femoral head and neck component as well as lengthening of the right leg. Since surgery, patient states that she has had no complaints to her right hip. Has had swelling to the right hip but denies any complications or issues with swelling. Denies any calf pain or shortness of breath. Patient is very pleased status post surgery to the right hip as she feels that her leg length is now properly aligned. The patient does have complaints of right knee pain, weakness and instability. The patient states that issues started prior to surgery, but feels that they have not improved. The patient continues using front-wheeled walker due to the right knee pain. She denies any instability to the right hip and states that walkers are only used due to fear that she will fall because of the right knee. Denies any falls or trauma. Continues deep venous thrombosis prophylaxis. Continues pain medication as needed. OBJECTIVE: VITAL SIGNS: Blood pressure 131/62, temperature 97.7 degrees, pulse 75, respiratory rate 12, height 5 feet 5 inches, weight 113 pounds. PHYSICAL EXAMINATION: Gait is abnormal but not antalgic. The patient is using assisted ambulatory device in regards to front-wheeled walker due to weakness to the right knee. No pain to the right knee currently on exam. When laying down, the patient is able to flex the hip comfortably. The patient is also able to flex the knee while lying down. Increased pain when pressure is applied to the meniscus. No swelling to the right knee. Normal sensory examination to light touch. No increased laxity to the MCL and LCL of the right knee. Surgical wound is healing well to the right hip. ASSESSMENT AND PLAN: 1. Continue deep venous thrombosis prophylaxis, status post total hip revision. 2. Continue with pain medications as needed. 3. Continue with physical therapy as patient states that she has continued improvement in regards to functionality of the right hip. MRI of the right knee recommended for further evaluation and rule out of suspected meniscal injury. The patient advised to follow up in 2 weeks for MRI review of the right knee. Patient was seen with Dr. Lambert today. Dr. Lambert also agrees with the plan. MRI form was provided for patient today. Dictated By: PEACE ARMSTRONG for MANNIE LAMBERT MD, KP/AKUA Conf#: [id number] DID#: [id number] RIO
== END | disposition home or self-care (01) ==
LOC: HKI 14:19
DX: Z47.1 Aftercare following joint replacement surgery (principal); Z96.641 Presence of right artificial hip joint

== ENCOUNTER → 2017-01-13 | Outpatient (CLI) | payer MEDICARE, OTHER ==
--- NOTE | 2017-01-13 17:47 | RADRPT ---
PROCEDURE: XR AP pelvis/right hip. CLINICAL INDICATION: Hip pain TECHNIQUE: AP pelvis/lateral view of the right hip available for review. COMPARISON: 09/10/2016 and 12/05/2016 FINDINGS: There are bilateral total hip replacements. There is diffuse osteopenia. There is no evidence of loosening of the prosthesis. No fractures, di slocation or osseous lesions are identified. The joints are unremarkable. There are normal soft ti ssues. IMPRESSION: Diffuse osteopenia Bilateral total hip replacements. Otherwise unremarkable examination. RPTAT: HGDB .Sanju Prado MD, MD Date Time Electronically viewed and signed by .Sanju Prado MD, MD on 01/13/2017 17:46 .B/
--- NOTE | 2017-01-14 20:25 | HKNOTE ---
DATE OF SERVICE: 01/13/2017 HISTORY OF PRESENT ILLNESS: The patient comes with the MRI scan of her right knee for review. The MRI obtained on 01/04/[address] Obed Taylor as showing "horizontal cleavage tear of t he junction of the anterior body and anterior horn of the lateral meniscus. Degenerative changes se en within the medial meniscus." DISCUSSION: The patient continues to have significant instability of her knee. She was advised candice t the MRI scan has a 5% chance of seeing pathology that is not there and a 5% chance of missing path ology that might be there. In my opinion, she should undergo at least a diagnostic arthroscopy and whatever abnormalities are f ound can be treated. The procedure and some of the major possible complications were discussed with her in a fair amount of detail. She would like to proceed with an arthroscopic operation on the knee. Dictated By: MANNIE BLACKWOOD/AKUA Conf#: [id number] DID#: [id number]
== END | disposition home or self-care (01) ==
LOC: HKI 13:46
DX: Z47.89 Encounter for other orthopedic aftercare (principal)
CPT/HCPCS: 73502

== ENCOUNTER → 2017-02-04 | Outpatient (CLI) | payer MEDICARE, OTHER ==
--- NOTE | 2017-02-04 22:54 | HKNOTE ---
DATE OF SERVICE: 02/04/2017 The patient comes for preoperative evaluation, scheduled to have operative arthroscopy on her right knee on 02/06/2017. She has been cleared for surgery by Dr. Jeanna Klein. She will be admitted fo r 23-hour stay after the operation. Many aspects of the operation were discussed with her and her h usband in a fair amount of detail. She continues to have significant symptoms. Postoperative cours e was discussed with her. Dictated By: MANNIE BLACKWOOD/AKUA Conf#: [id number] DID#: [id number]
== END | disposition home or self-care (01) ==
LOC: HKI 13:24
DX: Z01.818 Encounter for other preprocedural examination (principal); M25.561 Pain in right knee
CPT/HCPCS: G0463

== ENCOUNTER 2017-02-06 08:46 | Observation (INO) | payer MEDICARE, OTHER ==
[2017-02-05 14:32] VITALS: BMI 18.3
[~2017-02-06] VITALS: Ht 165.1 cm; Wt 49.7 kg
[2017-02-06] VITALS (11 sets, daily range): BP systolic 84–114; BP diastolic 44–55; PULSE 70–76; RESP 13–19; Ht 165.1 cm; Wt 49.7 kg
[2017-02-06] MEDS ORDERED: ACETAMINOPHEN 1000MG/100ML IV 100 ML IVPB ONE (09:30)
[2017-02-06] MEDS ORDERED: VANCOMYCIN 1 GM (PMX) 250 ML IVPB ONE ×2 (09:30→10:00)
[2017-02-06] MEDS ORDERED: CELECOXIB 200 MG CAP PO ONE (09:30)
[2017-02-06] MEDS ORDERED: DEXAMETHASONE 4 MG/ML 1 ML INJ IV ONE ×2 (09:30→10:00)
[2017-02-06] MEDS ORDERED: LACTATED RINGER'S 1,000 ML IV* SCH (09:30)
[2017-02-06] MEDS ORDERED: ONDANSETRON 4 MG INJ IV ONE ×2 (09:30→10:00)
[2017-02-06] MEDS ORDERED: LANSOPRAZOLE 30 MG CAP PO ONE ×2 (09:30→10:00)
[2017-02-06] MEDS ORDERED: oxyCODONE (CR) 10 MG TAB [oxyCONTIN] PO ONE ×2 (09:30→10:00)
[2017-02-06] MEDS ORDERED: LEVO75TA65 PO (10:11)
--- NOTE | 2017-02-06 11:25 | HPN ---
Date/Time of Note Date/Time of Note DATE: 02/06/17 TIME: 11:25 Interval H&P Admission Note Pt. seen H&P reviewed: No system changes PEACE CORNEJO PA-C Feb 06, 2017 11:25
[2017-02-06] MEDS ORDERED: PROPOFOL 20 ML ONE (12:02)
[2017-02-06] MEDS ORDERED: METOCLOPRAMIDE 10 MG INJ ONE (12:02)
[2017-02-06] MEDS ORDERED: LIDOCAINE 2% (SDV) 5 ML INJ ONE (12:02)
[2017-02-06] MEDS ORDERED: ONDANSETRON 4 MG INJ ONE (12:02)
[2017-02-06] MEDS ORDERED: MEPERIDINE 100 MG INJ ONE (12:02)
[2017-02-06] MEDS ORDERED: morphine SULFATE/PF (10 MG/10 ML) INJ ONE (12:29)
[2017-02-06] MEDS ORDERED: KETOROLAC 30 MG INJ ONE (12:29)
[2017-02-06] MEDS ORDERED: ROPIVACAINE 0.5 % 30 ML VIAL ONE (12:29)
[2017-02-06] MEDS ORDERED: BUPIVACAINE 0.25%/EPI (SDV) 30 ML INJ ONE (12:29)
[2017-02-06] MEDS ORDERED: METOCLOPRAMIDE 10 MG INJ IV PRN (12:30)
[2017-02-06] MEDS ORDERED: DIPHENHYDRAMINE 50 MG INJ IV PRN (12:30)
[2017-02-06] MEDS ORDERED: MEPERIDINE 25 MG INJ IV PRN (12:30)
[2017-02-06] MEDS ORDERED: MIDAZOLAM 1 MG/ML 2 ML INJ IV PRN (12:30)
[2017-02-06] MEDS ORDERED: FENTAnyl 50 MCG/ML VIAL IV PRN ×2 (12:30)
[2017-02-06] MEDS ORDERED: HYDROmorphONE (0.2 MG/ML) 10ML SYG IV PRN ×2 (12:30)
[2017-02-06] MEDS ORDERED: ONDANSETRON 4 MG INJ IV PRN ×2 (12:30→13:30)
[2017-02-06] MEDS ORDERED: HYDROCODONE/APAP (10/325) TAB PO PRN (13:30)
[2017-02-06] MEDS ORDERED: morphine 10 MG INJ IV PRN (13:30)
[2017-02-06] MEDS ORDERED: HYDROCODONE/APAP (5/325) TAB PO PRN ×2 (13:30)
[2017-02-06] MEDS ORDERED: ACETAMINOPHEN 1000MG/100ML IV 100 ML IVPB SCH (13:30)
--- NOTE | 2017-02-06 14:05 | PDOCDIS ---
Discharge Instructions DIAGNOSIS Discharge Diagnosis: s/p right knee arthoscopy with partial lateral meniscectomy CONDITION Patient Condition: Stable HOME CARE INSTRUCTIONS: Diet Instructions: Regular ACTIVITY: Activity Restrictions: Slowly Increase Activity Rest between Activity Avoid Heavy Housework Weight Bearing (as tolerated. may use cane or crutch if needed.) Bathing Restrictions: Shower FOLLOW UP/APPOINTMENTS Appointments Follow up on 02/10/17 at 2:15PM PEACE CORNEJO PA-C Feb 06, 2017 14:05
[2017-02-06] MEDS: SOD CHLORIDE 0.9% 1,000 ML IV SCH (14:56)
[2017-02-07] VITALS: BP 93/52; RESP 19
[2017-02-07] MEDS: SOD CHLORIDE 0.9% 1,000 ML IV SCH (02:50)
[2017-02-07 04:00] VITALS: BP 101/58; PULSE 78; RESP 16
[2017-02-07 07:55] VITALS: BP 98/55; RESP 14
--- NOTE | 2017-02-07 10:35 | PN ---
Date/Time of Note Date/Time of Note DATE: 02/07/17 TIME: 10:34 Assessment/Plan Lines/Catheters IV Catheter Type (from Nrsg): Peripheral IV Assessment/Plan Assessment/Plan Stable s/p right knee arthroscopy, partial meniscectomy -wound checked -OOB as tolerated -d/c home today -follow up in the office with Dr. Tanner Subjective 24 Hr Interval Summary No acute overnight events. Denies pain. Ambulating without assistive device. Wants to go home EMERY. Exam/Review of Systems Vital Signs Vitals Vital Signs Date Time Temp Pulse Resp B/P Pulse Ox O2 Delivery O2 Flow Rate FiO2 02/07/17 07:55 98.1 66 14 98/55 100 02/07/17 04:00 Room Air Intake and Output 02/06/17 02/06/17 02/07/17 15:00 23:00 07:00 Intake Total 300 ml 850 ml 1350 ml Output Total 10 ml 300 ml 400 ml Balance 290 ml 550 ml 950 ml Exam Free Text/Dictation Dressing dry Incision clean, dry, and intact without redness or drainage Thigh soft 5/5 Quadriceps, Tibialis Anterior, EHL, Gastroc, Soleus, Peroneals Normal sensation Palpable DT/PT, CR <2 sec No distal edema TONE HENNESSY PA-C Feb 07, 2017 10:35
--- NOTE | 2017-02-09 07:41 | OPR ---
DATE OF OPERATION: 02/06/2017 THEATRICAL RIGGER: NATHANIEL Norton ANESTHESIA: Dr. Maguire PREOPERATIVE DIAGNOSIS: Torn lateral meniscus of the right knee. POSTOPERATIVE DIAGNOSES: 1. Torn lateral meniscus. 2. Degenerative osteoarthritis. FINDINGS AT SURGERY: The patellofemoral joint was found to be quite arthritic with some remaining a rticular cartilage. On a scale of 1 to 10, the degenerative changes would be approximately a 4 or 5 . In the medial compartment, the medial femoral condyle and medial tibial plateau were found to be qu ite markedly arthritic, perhaps a 7 on a scale of 1 to 10. The medial meniscus was intact and no tr eatment was needed for the medial meniscus. The camera exposed the intercondylar notch and the cruc iate ligaments were found intact, but going over to the lateral compartment where there were multipl e tears of the lateral meniscus, starting with the posterior horn, and there was a detachment of the posterior horn from the ____ structures of the knee. Approximately 1/2 inch of the meniscus was no t attached. In addition to this, the posterior horn of the lateral meniscus seemed to be somewhat h ypermobile. On further exploration of the lateral meniscus, there were multiple tears all along the body and ant erior horn of the lateral meniscus. None of these tears extended into the popliteal hiatus. We wer e therefore able to retain the hiatus. DESCRIPTION OF PROCEDURE: Under general anesthetic, the right leg was prepared and draped in the [facility] sterile fashion. Standard and similar inferomedial and inferolateral portals were used. The k nee was systematically inspected and the above findings found and noted. Photographs were taken thr oughout of relevant structures. A camera was inserted into the suprapatellar pouch where the pouch itself and the medial and lateral gutters were explored and found to be completely normal. The camera was now moved down the latera l wall of the lateral compartment and no abnormal findings were found. The camera was now maneuvered into the medial compartment which was explored. Appropriate photograp hs were taken. There is no need for any kind of surgical treatment in the medial compartment. The range of arthritis on the distal femur and proximal tibia could easily be estimated to be 6 or 7 on a scale of 1 to 5. The cruciate ligaments were found to be intact. The camera was now moved into the lateral compartme nt where there were extensive tears as noted above, including tears of the posterior quarter of the lateral meniscus. The rest of the lateral meniscus showed multiple tears of the medial border. Using a variety of basket forceps and motorized intra-articular shaver, we completely detached the p osterior horn of the lateral meniscus was now removed. A variety of basket forceps were used and th e motorized intra-articular shaver to remove all unstable articular cartilage throughout the length of the lateral meniscus. The popliteal hiatus was therefore completely intact. At the end of the procedure, the knee was copiously irrigated to remove all contained fragments. Th e lateral wall of the knee was injected with a mixture of Naropin, Toradol, morphine and clonidine. The wounds were now closed using interrupted Vicryl. The usual sterile dressings were applied. The re were no complications as far as is known. Dictated By: MANNIE BLACKWOOD/AKUA Conf#: [id number] DID#: [id number]
--- NOTE | 2017-02-09 07:58 | DS ---
Date/Time of Note Date/Time of Note DATE: 02/09/17 TIME: 07:54 Discharge Summary Admission/Discharge Info Admit Date/Time Feb 06, 2017 at 13:40 Discharge Date/Time Feb 07, 2017 at 11:00 Final Diagnosis Status post right knee arthroscopy with partial meniscectomy. Patient Condition: Stable Hospital Course On the day of admission, the patient underwent right knee arthroscopy with partial meniscectomy Intraoperative complications: None Postoperative complications: None The patient was given prophylactic antibiotics and anticoagulants. On the day of surgery and first postoperative day patient was started on gait training and was taught usual restrictions following right knee arthroscopy with partial meniscectomy. Suction drain removed on the first postoperative day and the dressings were changed. The wound was found to be clean and healing well. There was no sign of infection. Pain cocktail given. Placed on 23 hour observation. On the day of discharge, the wound was clean and healing well; there was no sign of infection. The dressings were changed. Discharge Temperature: 98.1 The patient was discharged home. The patient will be seen in office at scheduled postoperative evaluation date given on their preoperative exam (patient will follow-up on 02/10/2017). Should patient complain of any problems prior to scheduled postoperative evaluation date, they may call into outpatient clinic to determine if they need to be scheduled at sooner appointment to be seen immediately if needed. Discharge medications: As per medication reconciliation form Diet: Same as preadmission diet. This is Peace Rodriguez PA-C dictating discharge summary for Dr. Wild Tanner. Home Meds Reported Medications Levothyroxine Sodium* (Levoxyl*) 75 Mcg Tablet, 75 MCG PO BEFORE BREAKFAST, #30 TAB 02/06/17 Discontinued Reported Medications Liothyronine Sodium* (Cytomel*) 5 Mcg Tablet, 5 MCG PO DAILY, TAB 07/18/16 Levothyroxine Sodium* (Synthroid*) 50 Mcg Tablet, 37.5 MCG PO DAILY 02/07/14 Discontinued Scripts Aspirin (Aspir-Allyssa) 325 Mg Tablet., 325 MG PO BID for 42 Days, #84 For DVT PROPHYLAXIS s/p Surgery Prov:PEACE CORNEJO PA-C 12/07/16 Follow-up Plan 02/10/2017 in office. PEACE CORNEJO PA-C Feb 09, 2017 07:58
== END 2017-02-07 11:00 | disposition home or self-care (01) ==
LOC: SDS 08:46 → REC 13:40 → MS1 14:35
DX: M23.251 Derangement of posterior horn of lateral meniscus due to old tear or injury, right knee (principal); M17.11 Unilateral primary osteoarthritis, right knee; E03.9 Hypothyroidism, unspecified; Z88.1 Allergy status to other antibiotic agents; Z79.82 Long term (current) use of aspirin
CPT/HCPCS: 29881; G0378; J0131; J1885; J2175; J2274; J2405; J2765; J2795; J3370; J7030

== ENCOUNTER → 2017-02-10 | Outpatient (CLI) | payer MEDICARE, OTHER ==
[~2017-02-10] MED LIST changes: -ASPI325T32 PO; -LEVO50TA83 PO; +LEVO75TA65 PO; -LIOT5TAB3 PO
--- NOTE | 2017-02-10 16:34 | PN ---
Date/Time of Note Date/Time of Note DATE: 02/10/17 TIME: 16:31 Outpatient Progress Note Chief Complaint Postop visit status post right knee arthroscopy with partial lateral meniscectomy performed on 02/06/2017. HPI 82-year-old female presents today for postoperative visit status post arthroscopy with partial lateral meniscectomy to the right knee performed on . Patient denies any pain complaints. Patient does express discomfort with compression stockings as she feels that they are "too tight." Denies any falls or buckling of the knee status post surgery. Patient progressing well. Denies any calf pain, shortness of breath, chest pain/tightness. Review of Systems Const: No Fever, no chills, no Fatigue, normal appetite, no diaphoresis. Resp: No SOB, no wheezing, no chest pain. CV: No chest pain, no palpitaions, no GUNTER. Physical Exam Blood pressure is 133/60, temperature 98.3, pulse 71, respiratory rate 12, height 5 foot 5 inches, weight 108 pounds General Appearance: well-developed, well-nourished, in no acute distress. Right knee: Patient has full range of motion with active flexion and extension. Surgical wounds are clean dry and intact. Sutures intact. No tenderness to palpation. 5/5 strength on resistance with flexion and extension. Gait showing slight limp but patient denies any pain with weightbearing. Negative Homans sign/no calf pain. Normal sensory examination to light touch. Allergies Coded Allergies: nitrofurantoin (Verified Allergy, Severe, HIVES, 02/06/17) Assessment/Plan * Arthroscopic surgery discussed in detail with patient and patient's . Review of pictures from arthroscopy shown and explained today in detail. * Follow-up 1 week for repeat evaluation and suture removal. * Prescription for physical therapy provided today. Patient is having significant improvement in functionality but still advised additional physical therapy may be helpful in returning to full capacity. Dr. Tanner was present for exam today and agrees with plan. Medications Home Meds Reported Medications Levothyroxine Sodium* (Levoxyl*) 75 Mcg Tablet, 75 MCG PO BEFORE BREAKFAST, #30 TAB 02/06/17 Discontinued Reported Medications Liothyronine Sodium* (Cytomel*) 5 Mcg Tablet, 5 MCG PO DAILY, TAB 07/18/16 Levothyroxine Sodium* (Synthroid*) 50 Mcg Tablet, 37.5 MCG PO DAILY 02/07/14 Discontinued Scripts Aspirin (Aspir-Allyssa) 325 Mg Tablet., 325 MG PO BID for 42 Days, #84 For DVT PROPHYLAXIS s/p Surgery Prov:PEACE CORNEJO PA-C 12/07/16 PEACE CORNEJO PA-C Feb 10, 2017 16:34
== END | disposition home or self-care (01) ==
LOC: HKI 14:10
DX: Z47.89 Encounter for other orthopedic aftercare (principal); S83.281D Other tear of lateral meniscus, current injury, right knee, subsequent encounter

== ENCOUNTER → 2017-02-17 | Outpatient (CLI) | payer MEDICARE, OTHER ==
--- NOTE | 2017-02-17 15:12 | PN ---
Date/Time of Note Date/Time of Note DATE: 02/17/17 TIME: 15:06 Outpatient Progress Note Chief Complaint Status post right knee arthroscopy on 02/06/2017. HPI 82-year-old female presents today for postoperative visit status post right knee arthroscopy on 02/06/2017. Patient continues to progress well. Denies any pain complaints. Denies any limited functionality to the right knee status post surgery. Has yet to initiate postoperative physical therapy to the right knee. She feels that at home therapy is sufficient. Patient would like to initiate however, therapy status post hip replacement. Review of Systems Const: No Fever, no chills, no Fatigue, normal appetite, no diaphoresis. Resp: No SOB, no wheezing, no chest pain. CV: No chest pain, no palpitaions, no GUNTER. Physical Exam Blood pressure is 127/59, temperature 97.9, pulse 67, respiratory rate 12. General Appearance: well-developed, well-nourished, in no acute distress. Right knee: Wound sites clean dry and intact. Sutures intact. No signs of infection. Patient has full range of motion on flexion and extension of the right knee. Gait is normal to the right knee. No tenderness to palpation. Normal examination to the right knee. Allergies Coded Allergies: nitrofurantoin (Verified Allergy, Severe, HIVES, 02/06/17) Assessment/Plan * Sutures removed today. Steri-Strips applied. Wound care instructions discussed. * At this stage patient is having normal functionality status post arthroscopy. * Patient may continue with outpatient physical therapy as prescription was given for the right knee as well as for status post hip replacement. * Follow-up as needed in regards to the right knee and she has been doing well. Patient will follow up at scheduled appointment status post hip replacement. Dr. Tanner was present and agrees with the current plan. Medications Home Meds Reported Medications Levothyroxine Sodium* (Levoxyl*) 75 Mcg Tablet, 75 MCG PO BEFORE BREAKFAST, #30 TAB 02/06/17 PEACE CORNEJO PA-C Feb 17, 2017 15:12
== END | disposition home or self-care (01) ==
LOC: HKI 14:24
DX: Z47.89 Encounter for other orthopedic aftercare (principal); M25.561 Pain in right knee; Z96.643 Presence of artificial hip joint, bilateral

== ENCOUNTER → 2017-04-22 | Outpatient (CLI) | payer MEDICARE, OTHER ==
--- NOTE | 2017-04-22 15:32 | PN ---
Date/Time of Note Date/Time of Note DATE: 04/22/17 TIME: 15:27 Outpatient Progress Note Chief Complaint Status post right knee arthroscopy HPI 82-year-old female presents today for postoperative visit status post arthroscopic surgery for diagnostic arthroscopy as well as partial meniscectomy of lateral meniscus. In regards to the right knee directly patient denies any pain. She experiences most of her pain to the lateral quadriceps tendon on the right side as this is where she is pointing on exam. She has complaints of tightness and sharp pain usually with weightbearing. She states that this pain is was causing her limping. She has full range of motion to the right knee. Patient states that about a couple weeks ago she had "knots" going up the lateral side of the leg in which most of them have improved with physical therapy/massage therapy except ongoing not to the quadriceps tendon. Denies any falls. No complaints to the hip. Review of Systems Const: No Fever, no chills, no Fatigue, normal appetite, no diaphoresis. Resp: No SOB, no wheezing, no chest pain. CV: No chest pain, no palpitaions, no GUNTER. Physical Exam Blood pressure is 121/57, temperature is 97.7, pulse is 72, respiratory rate is 12, height is 5 foot 5 inches, weight is 110 pounds General Appearance: well-developed, well-nourished, in no acute distress. Right knee: Gait is abnormal and antalgic with limp. Using single-point cane for assisted ambulation. Patient has full range of motion with flexion and extension to the right knee. 5/5 strength on resistance with flexion and extension. Normal sensory examination to light touch. Palpable spasm to the lateral side of the right quadriceps muscle. 4+/5 strength with abduction of the right lower extremity. Allergies Coded Allergies: nitrofurantoin (Verified Allergy, Severe, HIVES, 02/06/17) Assessment/Plan * No pain to the right knee but continued pain secondary to palpable spasm/ possible trigger point to the right quadriceps tendon. Successful arthroscopy to the right knee. * Heat therapy recommended, anti-inflammatories as needed, daily stretches/home exercises * Mobic 7.5 mg 1 tab p.o. twice daily provided today #60 tablets * Dr. Tanner recommends additional 2-4 sessions of physical therapy with focus on ultrasound and iontophoresis for spasm * Patient education provided today. Physical therapy prescription was also provided * Follow-up as needed Dr. Tanner was present for examination today and agrees with plan. Medications Home Meds Reported Medications Levothyroxine Sodium* (Levoxyl*) 75 Mcg Tablet, 75 MCG PO BEFORE BREAKFAST, #30 TAB 02/06/17 PEACE CORNEJO PA-C Apr 22, 2017 15:32
== END | disposition home or self-care (01) ==
LOC: HKI 13:35
DX: Z47.89 Encounter for other orthopedic aftercare (principal); S83.281A Other tear of lateral meniscus, current injury, right knee, initial encounter

== ENCOUNTER → 2017-11-23 | Outpatient (CLI) | END | disposition home or self-care (01) ==